=== PATIENT | female | born 1940 | race Caucasian/White ===

== ENCOUNTER 2017-09-11 12:47 | Outpatient (CLI) | payer MEDICARE ==
--- NOTE | 2017-09-17 11:54 | Mammography Report ---
EXAMINATION: Digital bilateral screening mammogram 09/11/2017. CLINICAL INDICATION: A 77-year-old for screening. COMPARISON: 06/2015, 03/2014, 11/2012, 11/2011, 11/2010, 11/2009. TECHNIQUE: Routine CC and MLO projections were obtained of the breasts. REPORT: The breasts demonstrate scattered fibroglandular densities bilaterally. Coarse and punctate, typically benign calcifications are present. No suspicious masses, clustered microcalcifications, or regions of architectural distortion are identified. IMPRESSION: Benign findings. RECOMMENDATIONS: Routine annual screening unless otherwise clinically indicated. BIRADS category 2 benign findings. STANDARD QUALIFYING STATEMENTS 1. This examination was reviewed with the aid of Computed Aided Detection (CAD). 2. A negative x-ray report should not delay biopsy if a dominant or clinically suspicious mass is present. More than 5% of cancers are not identified by x-ray. 3. Dense breasts may obscure an underlying neoplasm. TD: 09/12/2017 14:46 [facility]ITAL[facility]
== END 2017-09-11 12:48 | disposition home or self-care (01) ==
LOC: DI 12:47
PROVIDERS: ATTEND Internal Medicine
DX: Z12.31 Encounter for screening mammogram for malignant neoplasm of breast (principal)
CPT/HCPCS: 77067

== ENCOUNTER 2017-12-07 11:44 | Outpatient (CLI) | payer MEDICARE ==
[2017-12-07 13:51] LABS: EOSINOPHILS # (AUTO) 0.1 10^3/uL (0.0-0.7); EOSINOPHILS % (AUTO) 1.5 %; HGB - HEMOGLOBIN 13.8 g/dL (12.0-16.0); LYMPHOCYTES # (AUTO) 0.5 10^3/uL (1.5-3.5); LYMPHOCYTES % (AUTO) 12.5 %; MEAN CORPUSCULAR HEMOGLOBIN 29.6 pg (27.0-31.0); MEAN CORPUSCULAR VOLUME 87.2 fL (81.0-99.0); MONOCYTES # (AUTO) 0.6 10^3/uL (0.0-1.0); MONOCYTES % (AUTO) 15.4 %; NEUTROPHILS # (AUTO) 2.8 10^3/uL (1.5-6.6); NEUTROPHILS % (AUTO) 69.6 %; PLT - PLATELET COUNT 92 10^3/uL (130-450); RED BLOOD COUNT 4.65 10^6/uL (4.20-5.40); RED CELL DISTRIBUTION WIDTH 13.5 % (12.0-15.0)
[2017-12-07 14:01] LABS: ALBUMIN 3.5 g/dL (3.2-5.5); ALBUMIN/GLOBULIN RATIO 1.1 (1.0-2.2); BILIRUBIN,TOTAL 0.4 mg/dL (0.2-1.0); CALCIUM 9.1 mg/dL (8.5-10.3); CREATININE 0.8 mg/dL (0.4-1.0); TOTAL PROTEIN 6.6 g/dL (6.7-8.2)
[2017-12-07 14:10] LABS: PLATELET ESTIMATE, MANUAL DECREASED (<130,000) (NORMAL); PLATELET MORPHOLOGY 1+ GIANT PLATELETS (NORMAL); RBC MORPHOLOGY (MULTIPLE) NORMAL APPEARANCE (NORMAL)
== END 2017-12-07 11:45 | disposition home or self-care (01) ==
LOC: LAB.R 11:44
PROVIDERS: ATTEND Internal Medicine
DX: R10.11 Right upper quadrant pain (principal); R94.5 Abnormal results of liver function studies
CPT/HCPCS: 80053; 83690; 85025

== ENCOUNTER 2017-12-20 09:49 | Outpatient (CLI) | payer MEDICARE ==
--- NOTE | 2017-12-20 12:08 | Ultrasound Report ---
ABDOMINAL ULTRASOUND: 12/20/2017 CLINICAL INDICATION: Right upper quadrant pain. TECHNIQUE: Real-time scanning was performed with medicare sales representative static images obtained. FINDINGS: The liver measures 13 cm. Hepatic echogenicity is normal. No intrahepatic biliary dilatation or focal parenchymal lesion is seen. The common bile duct measures 3 mm. The gallbladder is normal. The right kidney demonstrates a 1.4 cm calculus in the right renal pelvis. No hydronephrosis is present. The right kidney measures 8.9 cm. The left kidney measures 10.3 cm, and appears unremarkable. The spleen measures 8.6 cm, and demonstrates normal echotexture. The pancreas is unremarkable. The abdominal aorta is normal in caliber. The inferior vena cava is unremarkable. No free fluid is present. IMPRESSION: NONOBSTRUCTING RIGHT RENAL CALCULUS. OTHERWISE, NORMAL ABDOMINAL ULTRASOUND. TD: 12/20/2017 12:08
== END 2017-12-20 09:50 | disposition home or self-care (01) ==
LOC: DI 09:49
PROVIDERS: ATTEND Internal Medicine
DX: N20.0 Calculus of kidney (principal)
CPT/HCPCS: 76700

== ENCOUNTER 2018-01-30 10:51 | Outpatient (CLI) | payer MEDICARE ==
[2018-01-30 13:26] LABS: ALBUMIN 3.4 g/dL (3.2-5.5); ALKALINE PHOSPHATASE 73 IU/L (42-121); ALT ALANINE AMINOTRANSFERASE 30 IU/L (10-60); AST ASPARTATE AMINOTRANSFERASE 37 IU/L (10-42); BILIRUBIN,TOTAL 0.3 mg/dL (0.2-1.0); TOTAL PROTEIN 6.6 g/dL (6.7-8.2)
[2018-01-30 13:35] LABS: BILIRUBIN,DIRECT < 0.1 mg/dL (0.1-0.5)
== END 2018-01-30 10:52 | disposition home or self-care (01) ==
LOC: LAB.R 10:51
PROVIDERS: ATTEND Internal Medicine
DX: R94.5 Abnormal results of liver function studies (principal)
CPT/HCPCS: 80076

== ENCOUNTER 2018-05-31 10:09 | Outpatient (CLI) | payer MEDICARE ==
[2018-05-31 13:01] LABS: BASOPHILS % (AUTO) 0.8 %; BILIRUBIN,URINE NEGATIVE (NEGATIVE); EOSINOPHILS # (AUTO) 0.1 10^3/uL (0.0-0.7); EOSINOPHILS % (AUTO) 1.5 %; GLUCOSE, URINE (UA) NEGATIVE (NEGATIVE); HGB - HEMOGLOBIN 13.2 g/dL (12.0-16.0); KETONES,URINE (UA) NEGATIVE (NEGATIVE); LEUKOCYTE ESTERASE, URINE NEGATIVE (NEGATIVE); LYMPHOCYTES # (AUTO) 0.5 10^3/uL (1.5-3.5); LYMPHOCYTES % (AUTO) 13.1 %; MEAN CORPUSCULAR HEMOGLOBIN 30.2 pg (27.0-31.0); MEAN CORPUSCULAR HGB CONC 34.5 g/dL (32.0-36.0); MEAN CORPUSCULAR VOLUME 87.7 fL (81.0-99.0); MEAN PLATELET VOLUME 10.3 fL (7.9-10.8); MONOCYTES # (AUTO) 0.6 10^3/uL (0.0-1.0); MONOCYTES % (AUTO) 16.8 %; NEUTROPHILS # (AUTO) 2.3 10^3/uL (1.5-6.6); NEUTROPHILS % (AUTO) 67.8 %; NITRITE,URINE NEGATIVE (NEGATIVE); OCCULT BLOOD,URINE NEGATIVE (NEGATIVE); PH,URINE 6.5 PH (5.0-7.5); PLT - PLATELET COUNT 108 10^3/uL (130-450); PROTEIN,URINE NEGATIVE (NEGATIVE); RED BLOOD COUNT 4.36 10^6/uL (4.20-5.40); RED CELL DISTRIBUTION WIDTH 12.9 % (12.0-15.0); UROBILINOGEN,URINE 0.2 (NORMAL) E.U./dL (NORMAL); WHITE BLOOD COUNT 3.4 x10^3/uL (4.8-10.8)
[2018-05-31 13:04] LABS: CLARITY,URINE CLEAR (CLEAR)
[2018-05-31 13:09] LABS: ALBUMIN 3.6 g/dL (3.2-5.5); ALBUMIN/GLOBULIN RATIO 1.3 (1.0-2.2); BILIRUBIN,TOTAL 1.3 mg/dL (0.2-1.0); CALCIUM 9.3 mg/dL (8.5-10.3); CREATININE 0.8 mg/dL (0.4-1.0); TOTAL PROTEIN 6.4 g/dL (6.7-8.2)
== END 2018-05-31 10:10 | disposition home or self-care (01) ==
LOC: LAB.R 10:09
PROVIDERS: ATTEND Internal Medicine
DX: F03.90 Unspecified dementia, unspecified severity, without behavioral disturbance, psychotic disturbance, mood disturbance, and anxiety (principal); Z79.899 Other long term (current) drug therapy
CPT/HCPCS: 80053; 81001; 81003; 85025; 87086

== ENCOUNTER 2018-07-23 10:23 | Outpatient (CLI) | payer MEDICARE | END 2018-07-23 10:24 | disposition critical access hospital (66) | LOC: EMS 10:23 | PROVIDERS: ATTEND Surgery | DX: M25.551 Pain in right hip (principal); M25.552 Pain in left hip; W18.30XA Fall on same level, unspecified, initial encounter | CPT/HCPCS: A0425; A0429 ==

== ENCOUNTER 2018-07-23 10:40 | Emergency (ER) | payer MEDICARE ==
[2018-07-23] MEDS ORDERED: ACETAMINOPHEN 325 MG TABLET PO STA (10:54)
--- NOTE | 2018-07-23 10:55 | ED Physician Documentation ---
PD HPI Fall - Stated complaint Stated Complaint: HIP PX - History obtained from History obtained from: Patient (limited from her due to marked dementia), EMS, Caregiver - History of Present Illness Mechanism of injury: Lost balance, Unknown Fall distance: Standing position Where injury occurred: Other (care facility) Timing - onset: How many days ago (4) Injury(ies) location: Right Lower Extremity (was limping on right hip/leg today. fell 2 days ago but seemed okay at that time.) Associated symptoms: No: LOC, Weakness Worsens with: Other (walking). No: Movement Review of Systems Unable to obtain: Dementia, Other (info from EMS report from SNF) Constitutional: denies: Fever Respiratory: denies: Dyspnea GI: denies: Vomiting, Diarrhea Skin: denies: Laceration (s) Neurologic: denies: Focal weakness PD PAST MEDICAL HISTORY - Past Medical History Cardiovascular: None Respiratory: None Neuro: Dementia Endocrine/Autoimmune: None GI: None SENIOR CONTROLS ANALYST: None : None HEENT: Chronic vision loss, Chronic hearing loss Psych: None Musculoskeletal: Rheumatoid arthritis Derm: None - Present Medications Home Medications: Ambulatory Orders Medication Instructions Recorded Confirmed Hydroxychloroquine [Plaquenil] 100 mg PO BID 07/26/14 06/23/18 Multivitamin [Multivitamins] 1 mg PO DAILY 07/26/14 06/23/18 hydroCHLOROthiazide 25 mg PO DAILY 07/26/14 06/23/18 [Hydrochlorothiazide] LORazepam [Ativan] 0.5 mg PO ONCE 07/23/18 07/23/18 LORazepam [Ativan] 0.5 mg PO Q6H PRN 07/23/18 07/23/18 Naproxen 375 mg PO BID #20 tablet 07/23/18 - Allergies Allergies/Adverse Reactions: Allergies Allergy/AdvReac Type Severity Reaction Status Date / Time No Known Drug Allergies Allergy Verified 07/23/18 10:54 - Social History Does the pt smoke?: No Smoking Status: Never smoker Does the pt drink ETOH?: No Does the pt have substance abuse?: No - Immunizations Immunizations are current?: Yes - POLST Patient has POLST: Yes PD ED PE NORMAL - Vitals Vital signs reviewed: Yes - General General: No acute distress, Well developed/nourished, Other (significant dementia with poor interaction. Awake and attentive, can respond to her name and answer simple questions with yes/no mostly. ) - HEENT HEENT: Atraumatic, PERRL, EOMI, Moist mucous membranes, Pharynx benign - Neck Neck: Supple, no meningeal sign, No bony TTP, No adenopathy - Cardiac Cardiac: RRR, No murmur - Respiratory Respiratory: Clear bilaterally, Other (no chestwall tenderness) - Abdomen Abdomen: Soft, Non tender - Back Back: No CVA TTP, Other (hard to assess, but some pain apparent in low back with ROM; no deformity.) - Derm Derm: Normal color, Warm and dry - Extremities Extremities: Normal ROM s pain (she can move her knees and hips well without pain. There is a bruising anterior left knee, without effusion. No gross laxity on ligament testing. Hip impaction and rotation does not cause pain. Possible some tenderness to hip compression laterally. Can assess for pelvic injury. ), No edema, No calf tenderness / cord - Neuro Neuro: No motor deficit, No sensory deficit. No: Alert and oriented X 3, Normal speech (c/w marked dementia.) Results - Vitals Vitals: Vital Signs - 24 hr 07/23/18 07/23/18 10:40 14:13 Temperature 36.5 C 36.6 C Heart Rate 78 80 Respiratory 18 16 Rate Blood Pressure 152/77 H 150/83 H O2 Saturation 99 99 Oxygen O2 Source Room air - Labs Labs: Laboratory Tests 07/23/18 07/23/18 11:06 11:06 WBC 3.5 L RBC 4.20 Hgb 12.5 Hct 36.3 L MCV 86.4 MCH 29.7 MCHC 34.4 RDW 12.9 Plt Count 151 MPV 9.3 Neut # (Auto) 2.1 Lymph # (Auto) 0.4 L Gilchrist # (Auto) 0.7 Eos # (Auto) 0.4 Baso # (Auto) 0.0 Absolute Nucleated RBC 0.00 Nucleated RBC % 0.0 Sodium 140 Potassium 3.5 Chloride 102 Carbon Dioxide 30 Anion Gap 8.0 BUN 29 H Creatinine 0.8 Estimated GFR (MDRD) 69 L Glucose 106 H Calcium 9.3 Magnesium 2.1 Total Bilirubin 0.8 AST 24 ALT 15 Alkaline Phosphatase 113 Total Protein 7.0 Albumin 3.5 Globulin 3.5 Albumin/Globulin Ratio 1.0 Lipase 38 - Rads (name of study) left knee Radiology: Prelim report reviewed (no fractures) pelvic and lumbar CT Radiology: Prelim report reviewed (negative for lumbar vertebral body fracture. Multiple levels of arthropathy, spondylolisthesis, and canal stenosis. Remote S4 fracture comminuted without soft tissue swelling nor edema to suggest acute injury (commentary on Pelvic CT and not lumbar). ) head CT Radiology: Prelim report reviewed (possilbe area of small frontal contusion vs. artifact calcification), Discussed with cornelius SIMS MEDICAL DECISION MAKING - ED course Complexity details: reviewed results (talked with about possible small contusion frontal brain but would not need more than watching. Her dementia limits cognitive subtle assessment per se. No fractures of back/hips/knee, which was and SNF main concern for sending her. Shared decision to let her back to SNF.), considered differential, d/w patient, d/w family (, who subsequently came to ED after imaging.), d/w data processing systems consultant (Provider at [facility], who reviewed the CT report and findings, and also felt that no particular treatment would be needed if there were frontal contusion after 2 days already. No need for Neurosurg nor transfer.) Departure - Departure Disposition: 01 Home, Self Care Clinical Impression: History of recent fall, Limping Dementia Qualifiers: Dementia type: unspecified type Dementia behavioral disturbance: without behavioral disturbance Qualified Code(s): F03.90 - Unspecified dementia without behavioral disturbance Knee contusion Qualifiers: Encounter type: initial encounter Laterality: left Qualified Code(s): S80.02XA - Contusion of left knee, initial encounter Condition: Stable Record reviewed to determine appropriate education?: Yes Follow-Up: Jami Hardy DO [Primary Care Provider] - Prescriptions: Naproxen 375 mg PO BID #20 tablet Comments: Naproxen 375 mg twice daily for the next 7-10 days to be taken with food. Continue other usual medications. Recheck if not improved over the next several days to week. There are no signs of fractures on your low back pelvis or knee. A scan of the head showed a possibility of a very small bruising in the front part of the brain (or it may be just an artifact according to the radiologist). This does not need any particular treatment and should improve as a small bruise would. Discharge Date/Time: 07/23/18 14:14
[2018-07-23 11:13] LABS: BASOPHILS % (AUTO) 1.4 %; EOSINOPHILS # (AUTO) 0.4 10^3/uL (0.0-0.7); EOSINOPHILS % (AUTO) 10.3 %; HGB - HEMOGLOBIN 12.5 g/dL (12.0-16.0); LYMPHOCYTES # (AUTO) 0.4 10^3/uL (1.5-3.5); MEAN CORPUSCULAR HEMOGLOBIN 29.7 pg (27.0-31.0); MEAN CORPUSCULAR HGB CONC 34.4 g/dL (32.0-36.0); MEAN CORPUSCULAR VOLUME 86.4 fL (81.0-99.0); MEAN PLATELET VOLUME 9.3 fL (7.9-10.8); MONOCYTES # (AUTO) 0.7 10^3/uL (0.0-1.0); MONOCYTES % (AUTO) 19.1 %; NEUTROPHILS # (AUTO) 2.1 10^3/uL (1.5-6.6); NEUTROPHILS % (AUTO) 59.2 %; PLT - PLATELET COUNT 151 10^3/uL (130-450); RED CELL DISTRIBUTION WIDTH 12.9 % (12.0-15.0); WHITE BLOOD COUNT 3.5 x10^3/uL (4.8-10.8)
[2018-07-23 11:30] LABS: ALBUMIN 3.5 g/dL (3.2-5.5); BILIRUBIN,TOTAL 0.8 mg/dL (0.2-1.0); CALCIUM 9.3 mg/dL (8.5-10.3); CREATININE 0.8 mg/dL (0.4-1.0); MAGNESIUM 2.1 mg/dL (1.7-2.8)
--- NOTE | 2018-07-23 11:50 | XRAY Report ---
Reason: fall with bruise left knee anterior Procedure Date: 07/23/2018 Accession Number: [id number] / [id number] Procedure: XR - Knee 3 View LT CPT Code: FULL RESULT: EXAM: LEFT KNEE RADIOGRAPHY EXAM DATE: 07/23/2018 11:26 AM. CLINICAL HISTORY: Fall with bruise left knee anterior. COMPARISON: XR TIBIA TECHNIQUE: 3 views. FINDINGS: Bones: Diffusely demineralized. No fractures or bone lesions. There is spurring at the quadriceps tendon insertion on the anterior superior patella. Joints: No subluxation or dislocation. No joint effusion. There is mild narrowing of the patellofemoral compartment. Soft Tissues: There is mild soft tissue swelling anterior to the lower pole of the patella. Moderate vascular calcifications are present. IMPRESSION: 1. No acute osseous abnormality. 2. Mild soft tissue swelling anterior to the inferior pole of the patella. 3. 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 RADIA
--- NOTE | 2018-07-23 12:09 | CT Report ---
Reason: fell, dementia and is confused Procedure Date: 07/23/2018 Accession Number: [id number] / [id number] Procedure: CT - Head W/O CPT Code: FULL RESULT: EXAM: CT HEAD EXAM DATE: 07/23/2018 11:28 AM. CLINICAL HISTORY: Fell, dementia and is confused. COMPARISON: Head CT 10/19/2006 (axial images only). TECHNIQUE: Multiaxial CT images were obtained from the foramen magnum to the vertex. Reformats: Sagittal and coronal. IV contrast: None. In accordance with CT protocol optimization, one or more of the following dose reduction techniques were utilized for this exam: automated exposure control, adjustment of mA and/or KV based on patient size, or use of iterative reconstructive technique. FINDINGS: Parenchyma: Small focus of high density along the anterior right frontal parafalcine cortex is suspicious for mild frontal cortical contusion/hemorrhage. Small focus of subarachnoid hemorrhage would be difficult to exclude. This potentially could be related to artifact, particularly based on the sagittal images. No evidence of mass, midline shift, or CT findings of acute infarction. Perez-white differentiation is distinct. Diffuse chronic microangiopathic white matter changes are evident and appear progressed compared with 2006. Extraaxial Spaces: Normal for age. No subdural or epidural collections identified. Ventricles: The ventricles and cortical sulci are enlarged, consistent with age-related tissue loss, progressed compared to 2006. Sinuses and orbits: Imaged paranasal sinuses, orbits, and mastoids show no significant abnormality. Bones: No evidence of fracture or calvarial defect. Other: None. IMPRESSION: 1. Findings suspicious for a small focus of right frontal cortical contusion/hemorrhage, as discussed above. 2. No other definite acute intracranial abnormality. 3. Generalized age-related cortical atrophic changes and substantial diffuse chronic microangiopathic white matter changes appear progressed compared with 2006. RADIA The above findings were discussed with Samir Friedman by Dr. Jakub Nunez at 12:07 hrs on 07/23/18.
--- NOTE | 2018-07-23 12:21 | CT Report ---
Reason: fell with limping hip/back Procedure Date: 07/23/2018 Accession Number: [id number] / [id number] Procedure: CT - Lumbar Spine W/O CPT Code: FULL RESULT: EXAM: CT LUMBAR SPINE WITHOUT CONTRAST EXAM DATE: 07/23/2018 11:44 AM. CLINICAL HISTORY: Fell with limping and hip/back pain. COMPARISONS: CT pelvis without contrast 07/23/2018.. TECHNIQUE: Thin-section axial images were acquired of the lumbar spine from T12 to S1 without contrast. Post-processing: Coronal and sagittal reformats. Other: None. In accordance with CT protocol optimization, one or more of the following dose reduction techniques were utilized for this exam: automated exposure control, adjustment of mA and/or KV based on patient size, or use of iterative reconstructive technique. FINDINGS: Alignment: 1. Retrolisthesis 4 mm L1 on L2. 2. Anterolisthesis 7 mm L4 and L5. 3. Anterolisthesis 1.2 cm L5 on S1. Bones: Five [id number]-hma-bmsshki lumbar vertebral bodies are present. No fractures or bone lesions. Displaced comminuted fractures noted of the S4 segment sacrum on the sagittal reconstructions. Disk Levels/Facets: T12-L1: Mild disk degeneration. Negative for spinal canal stenosis or foraminal stenosis. L1-L2: Severe disk degeneration. Moderate bilateral foraminal stenosis from retrolisthesis and disk degeneration. Widening of the apophyseal joints. Negative for central spinal canal stenosis. L2-L3: Diffuse disk bulge. Mild bilateral foraminal stenosis mild bilateral facet joint arthrosis. L3-L4: Mild disk degeneration. Mild left and moderate right foraminal stenosis from facet hypertrophy and loss of disk height. Negative for central spinal canal stenosis. L4-L5: Severe facet hypertrophic arthropathy. Mild right foraminal stenosis. Moderate left foraminal stenosis from loss of disk height, anterolisthesis and disk bulge. Diffuse disk bulge. L5-S1: Severe disk degeneration. Severe facet joint arthrosis. Severe right foraminal stenosis from disk degeneration and endplate spurring. Moderate to severe left foraminal stenosis from disk degeneration, facet hypertrophy and anterolisthesis. Musculature: Normal. No fatty atrophy. Other: The visualized retroperitoneum is unremarkable. Increased septal markings with honeycombing right lung base. Elevation of the right hemidiaphragm. Left lung base is without consolidation. Negative for pleural fluid. Diffuse cardiac enlargement. Cardiac valve and coronary artery calcification. Several dependent right kidney stones with the cluster measuring 1.7 cm in transverse dimension. Narrowing and arthrosis interspinous spaces from L2-L5. IMPRESSION: 1. Negative for lower thoracic or lumbar vertebral body fracture. 2. S4 sacral segment displaced comminuted fracture. 3. Severe bilateral facet joint arthrosis and there is 7 mm anterolisthesis L4 on L5. 4. Severe bilateral L5-S1 facet joint hypertrophic arthropathy, severe L5-S1 disk degeneration and anterolisthesis 1.2 cm L5 on S1. 5. Severe right and moderate to severe left L5-S1 foraminal stenosis. 6. Moderate right L3-L4 moderate left L4-L5 foraminal stenosis. 7. Multiple central right kidney layering cyst or pelvis stones. 8. Chronic interstitial lung disease right lung base.. RADIA
--- NOTE | 2018-07-23 12:31 | CT Report ---
Reason: fell with limping right hip Procedure Date: 07/23/2018 Accession Number: [id number] / [id number] Procedure: CT - Pelvis W/O CPT Code: FULL RESULT: EXAM: CT BONY PELVIS WITHOUT CONTRAST EXAM DATE: 07/23/2018 11:44 AM. CLINICAL HISTORY: Fell with limping right hip. COMPARISON: CT lumbar spine 07/23/2018 ABDOMEN/PELVIS W/ 02/14/2016 10:42 AM. TECHNIQUE: Thin-section axial images were acquired of the pelvis without contrast. Post-processing: Coronal and sagittal reformats. Other: None. In accordance with CT protocol optimization, one or more of the following dose reduction techniques were utilized for this exam: automated exposure control, adjustment of mA and/or KV based on patient size, or use of iterative reconstructive technique. FINDINGS: Bones: Comminuted fracture is noted of the superior S4 segment with the 4 mm anterior displaced cortical fracture and mild angulation which is new as compared to the CT 02/14/2016. Sacroiliac Joints: No widening, erosions, or sclerosis. Symphysis Pubis: Unremarkable. Right Hip: Narrowing of the right hip. Moderate right hip osteoarthritis. Left Hip: The joint space is preserved. No calcified loose bodies. Negative for left hip osteoarthritis. Musculature: Normal. No fatty atrophy. Pelvic Cavity: Negative for pelvic free fluid. Severe distention of the urinary bladder. Probable rectal fecal impaction. Pelvic floor relaxation. Other: No lymphadenopathy. No free air or free fluid. The other visualized soft tissues are unremarkable. IMPRESSION: 1. Negative for a hip fracture. 2. Transverse remote comminuted fracture superior S4 segment and sacrum with 4 mm ventral cortical fracture fragment displacement and angulation. Negative for associated presacral edema on the sagittal reconstructions to suggest acute injury. RADIA
[2018-07-23 14:14] VITALS: BP 150/83
== END 2018-07-23 14:14 | disposition home or self-care (01) ==
LOC: EDUNIT# → ED 10:40
DX: S80.02XA Contusion of left knee, initial encounter (principal); M25.551 Pain in right hip; W18.30XA Fall on same level, unspecified, initial encounter; Y92.129 Unspecified place in nursing home as the place of occurrence of the external cause; F03.90 Unspecified dementia, unspecified severity, without behavioral disturbance, psychotic disturbance, mood disturbance, and anxiety; M51.37 Other intervertebral disc degeneration, lumbosacral region; M48.07 Spinal stenosis, lumbosacral region; M06.9 Rheumatoid arthritis, unspecified
CPT/HCPCS: 36415; 70450; 72131; 72192; 73562; 80053; 83690; 83735; 85025; 99283; A9270

== ENCOUNTER 2018-07-25 15:26 | Outpatient (CLI) | payer MEDICARE | END 2018-07-25 15:27 | disposition critical access hospital (66) | LOC: EMS 15:26 | PROVIDERS: ATTEND Surgery | DX: M25.551 Pain in right hip (principal); W19.XXXA Unspecified fall, initial encounter | CPT/HCPCS: A0425; A0429 ==

== ENCOUNTER 2018-07-25 15:29 | Observation (INO) | payer MEDICARE ==
--- NOTE | 2018-07-25 15:31 | ED Physician Documentation ---
PD HPI LOWER EXT INJURY - Stated complaint Stated Complaint: HIP PX - History obtained from History obtained from: Patient - History of Present Illness PD HPI LOW EXT INJURY LOCATION: Right, Hip Type of injury: Fall (she has had multiple falls recently, with balance problems and some knee and back pains, with fall just couple days ago and seen in ER with normal imaging. She has dementia and likes to get up and walk. Fell today and has new pain right hip.) Where injury occurred: Other (SNF/dementia care unit) Timing - onset: Today Timing - details: Abrupt onset Worsened by: Moving, Palpating Associated symptoms: No: Weakness, Numbness Review of Systems Unable to obtain: Dementia Constitutional: denies: Fever Nose: denies: Rhinorrhea / runny nose, Congestion Respiratory: denies: Dyspnea, Cough GI: denies: Vomiting, Diarrhea Skin: denies: Abrasion (s), Laceration (s) Neurologic: denies: Focal weakness PD PAST MEDICAL HISTORY - Past Medical History Cardiovascular: None Respiratory: None Neuro: Dementia Endocrine/Autoimmune: None GI: None TELECOMMUNICATIONS REPAIRER: None : None HEENT: Chronic vision loss, Chronic hearing loss Psych: None Musculoskeletal: Rheumatoid arthritis Derm: None - Present Medications Home Medications: Ambulatory Orders Medication Instructions Recorded Confirmed RX: Acetaminophen 650 mg PO Q6H PRN 07/25/18 07/25/18 RX: Hydroxychloroquine Sulfate 200 mg PO BID 07/25/18 07/25/18 RX: LORazepam [Lorazepam] 0.5 mg PO 1200 07/25/18 07/25/18 RX: LORazepam [Lorazepam] 0.5 mg PO Q6H PRN 07/25/18 07/25/18 RX: Loperamide HCl [Loperamide] 2 - 4 mg PO PRN PRN MDD 16 MG 07/25/18 07/25/18 RX: Multivitamin [Theragran] 1 tab PO DAILY 07/25/18 07/25/18 RX: QUEtiapine [SEROquel] 25 mg PO 0600,1200 07/25/18 07/25/18 RX: Sennosides [Senna] 8.6 - 17.2 mg PO DAILY PRN 07/25/18 07/25/18 RX: Simvastatin 10 mg PO QPM 07/25/18 07/25/18 Cholecalciferol (Vitamin D3) 1,000 unit PO DAILYWM #30 capsule 07/26/18 [Vitamin D3] RX: Alendronate [Fosamax] 70 mg PO Q7D tablet 07/26/18 RX: Calcium Carbonate [Tums 500 mg PO BID tablet 07/26/18 (Calcium Carbonate 500mg)] RX: Cyclobenzaprine [Flexeril] 5 mg PO TID PRN tablet 07/26/18 RX: Ferrous Sulfate 325 mg PO TID #90 tablet 07/26/18 RX: HYDROcod/ACETAM 5/325 [[place] 1 tab PO Q4HR PRN tablet 07/26/18 5325] RX: Latanoprost 0.005% Ophth Drops 1 drops EACHEYE QPM bottle 07/26/18 [Xalatan Ophth Drops] RX: Memantine [Namenda] 5 mg PO BID tablet 07/26/18 RX: Polyethylene Glycol 3350 17 gm PO DAILY packet 07/26/18 [Miralax] - Allergies Allergies/Adverse Reactions: Allergies Allergy/AdvReac Type Severity Reaction Status Date / Time No Known Drug Allergies Allergy Verified 07/23/18 10:54 - Social History Does the pt smoke?: No Smoking Status: Never smoker Does the pt drink ETOH?: No Does the pt have substance abuse?: No - Immunizations Immunizations are current?: Yes - POLST Patient has POLST: Yes PD ED PE NORMAL - Vitals Vital signs reviewed: Yes - General General: Well developed/nourished. No: Alert and oriented X 3 (answers to name and is alert but significant dementia. ) - HEENT HEENT: Atraumatic, Moist mucous membranes, Pharynx benign - Neck Neck: Supple, no meningeal sign, No bony TTP, No adenopathy - Cardiac Cardiac: RRR, No murmur - Respiratory Respiratory: Clear bilaterally - Abdomen Abdomen: Soft, Non tender - Derm Derm: Normal color, Warm and dry - Extremities Extremities: Other (bruised noted on knees and hips. partial thickness skin wound without active infection left lateral inguinal area. No proximal bruises. Right hip painful for impactional testing, not as much for rotational. ) - Neuro Neuro: No motor deficit, No sensory deficit Results - Vitals Vitals: Oxygen O2 Source Room air - Rads (name of study) pelvis Radiology: Prelim report reviewed (rami fractures on right, minimally displaced. Hip appears okay. ), EMP read contemporaneously PD MEDICAL DECISION MAKING - ED course Complexity details: considered differential, d/w patient, d/w family (), d/w organization development consultant (senior stock plan administrator from he SNF is in ER and says they can handle her at facility if establish appropriate pain control and get PT assessment for treatment here in hospital first. ) Departure - Departure Disposition: ED Place in Observation Clinical Impression: Intractable pain Fall from slip, trip, or stumble Qualifiers: Encounter type: subsequent encounter Qualified Code(s): W01.0XXD - Fall on same level from slipping, tripping and stumbling without subsequent striking against object, subsequent encounter Closed fracture of single pubic ramus of pelvis Qualifiers: Encounter type: initial encounter Laterality: right Qualified Code(s): S32.591A - Other specified fracture of right pubis, initial encounter for closed fracture Dementia Qualifiers: Dementia type: unspecified type Dementia behavioral disturbance: without behavioral disturbance Qualified Code(s): F03.90 - Unspecified dementia without behavioral disturbance Condition: Stable Record reviewed to determine appropriate education?: Yes Discharge Date/Time: 07/25/18 18:56
[2018-07-25] MEDS ORDERED: ACETAMINOPHEN 325 MG TABLET PO STA (15:50)
[2018-07-25] MEDS ORDERED: KETOROLAC 15 MG/ML VIAL IVP STA (17:05)
[2018-07-25] MEDS ORDERED: MORPHINE 10 MG/ML VIAL IVP STA (17:05)
--- NOTE | 2018-07-25 17:06 | XRAY Report ---
Reason: fall again today, with right hip pain Procedure Date: 07/25/2018 Accession Number: [id number] / [id number] Procedure: XR - Hip w/Pelvis 2-3V RT CPT Code: FULL RESULT: EXAM: RIGHT HIP AND PELVIS RADIOGRAPHY EXAM DATE: 07/25/2018 04:43 PM. HISTORY: Fall again today, with right hip pain. COMPARISONS: XR HIPS BILAT 07/26/2009 4:02 PM PELVIS W/O 07/23/2018 11:38 AM. TECHNIQUE: 1 view of the pelvis and 1 view of the hip. FINDINGS: Bones: There are new fractures with displacement of the right superior and inferior pubic rami. There is diffuse demineralization. Possible right sacral fracture, limited by demineralization. No right femur fracture. Joints: No subluxation or dislocation. Soft Tissues: No dilated bowel loops. There are vascular calcifications. IMPRESSION: 1. Acute new fractures with displacement of the right superior and inferior pubic ramus. Possible right sacral fracture, visualization limited by demineralization. RADIA
[2018-07-25] MEDS ORDERED: ONDANSETRON 4 MG/2 ML VIAL IVP PRN (17:54)
[2018-07-25] MEDS ORDERED: ONDANSETRON ODT 4 MG TABLET TL PRN (17:54)
[2018-07-25] MEDS ORDERED: SODIUM CHLORIDE FLUSH 0.9% 10 ML SYRINGE IVP PRN (17:54)
[2018-07-25 18:08] LABS: BASOPHILS % (AUTO) 0.6 %; EOSINOPHILS # (AUTO) 0.1 10^3/uL (0.0-0.7); EOSINOPHILS % (AUTO) 1.9 %; LYMPHOCYTES # (AUTO) 0.3 10^3/uL (1.5-3.5); LYMPHOCYTES % (AUTO) 4.9 %; MEAN CORPUSCULAR HEMOGLOBIN 28.8 pg (27.0-31.0); MEAN CORPUSCULAR HGB CONC 33.4 g/dL (32.0-36.0); MEAN CORPUSCULAR VOLUME 86.2 fL (81.0-99.0); MEAN PLATELET VOLUME 9.3 fL (7.9-10.8); NEUTROPHILS # (AUTO) 4.2 10^3/uL (1.5-6.6); NEUTROPHILS % (AUTO) 75.6 %; PLT - PLATELET COUNT 165 10^3/uL (130-450); RED BLOOD COUNT 3.83 10^6/uL (4.20-5.40); RED CELL DISTRIBUTION WIDTH 13.2 % (12.0-15.0); WHITE BLOOD COUNT 5.6 x10^3/uL (4.8-10.8)
[2018-07-25] MEDS ORDERED: CYCLOBENZAPRINE 10 MG TABLET PO PRN (18:15)
[2018-07-25] MEDS ORDERED: hydrALAZINE INJ 20 MG/ML VIAL IVP PRN (18:16)
[2018-07-25 18:20] LABS: ALBUMIN 3.2 g/dL (3.2-5.5); BILIRUBIN,TOTAL 1.3 mg/dL (0.2-1.0); CALCIUM 8.9 mg/dL (8.5-10.3); TOTAL PROTEIN 6.5 g/dL (6.7-8.2)
--- NOTE | 2018-07-25 18:27 | HISTORY & PHYSICAL EXAMINATION ---
Chief Complaint - Chief Complaint Chief Complaint: s/p fall with hip pain History of Present Illness - Admitted From Admitted From:: From [facility] unit - History Obtained From Records Reviewed: yes History obtained from: Son Exam Limitations: Patient's dementia - History of Present Illness HPI Comment/Other: This is a 77 y/o pleasantly demented female with hx multiple falls, alzheimer's dementia, HTN, HLP, osteopenia, OA of hip, L-spine stenosis with dejenerative disk diseae p/w ER having been seen for a fall 2 days prior from [facility] unit with recurrent fall and associated hip pain with gait disturbabnce. Patien's son was at bedside to convey most of information as patient has moderate dementia and is a poor historian. Patient had imaging studies 2 days prior which showed L-knee xray neg for acute fx's, however L- spine and pelvis CT showed an S-4 segment comminuted and displaced sacral fx with angulation (age undetermined). L-spine at the time revealed degenerative disc disease at L-5 to S-1 with moderate stenosis to right L3/L4 and left L4/L5, anterolisthiesis L4/L5 and L5 on S1, along with facet arthropathy BL L5/S1, ostepenia, moderate right hip OA. Today patient had another fall for which Xrays revealed R-sacral fx present likely from prior fall, and NEW pelvic fractures to right superior and inferior pubic rami with displacement. Labs from 07/23 were essential unremarkable, CBC today shows a downtrending in Hgb to 11.0 from a 12.5. Patient or son denies melena, fevers, joint pain, dysuria, chest pain, nausea, emesis, or rashes. Patient was able to extend her left leg and did not grimace in pain on manipulation her pelvis bilaterally. History - Past Medical History Cardiovascular: reports: None, Murmur, Other (systolic 2/6 rad to axilla ) Respiratory: reports: None, Other (ILD) Neuro: reports: Alzhiemer's, Dementia Endocrine/Autoimmune: reports: None GI: reports: None, Other (tubular adenoma on colonoscopy 09/20/15) RESIDENT PHYSICIAN IN RADIOLOGY: reports: None : reports: None HEENT: reports: Chronic vision loss, Chronic hearing loss Psych: reports: None, Other (dementia ) Musculoskeletal: reports: Rheumatoid arthritis Derm: reports: None MRSA Hx?: No Other Past Medical History: hemorrhoids in 2015, hyperlipidemia, HTN - Past Surgical History /RESIDENT PHYSICIAN IN RADIOLOGY: reports: Hysterectomy HEENT: reports: Cataracts, Other (s/p cataract extraction ) Derm: reports: Other (sebacyst cystectomy 2013) - Family & Social History Family History Comment/Other: Due to patient's demented status limited. Living arrangement: Other (Memory care unit) Living Situation: Other ([facility]) - Substance History Use: Uses substance without health or social issues: NONE Use Issues: Other (Alzheimer's dementia ) Abuse: Recurrent use of substance despite neg consequences: NONE Dependence: Experiences withdrawal or developed tolerances: NONE - POLST Patient has POLST: Yes POLST Status: DNR Meds/Allgy - Home Medications Home Medications: Ambulatory Orders Medication Instructions Recorded Confirmed RX: hydroCHLOROthiazide 25 mg PO DAILY 07/26/14 07/25/18 [Hydrochlorothiazide] LORazepam [Lorazepam] 0.5 mg PO 1200 07/25/18 07/25/18 LORazepam [Lorazepam] 0.5 mg PO Q6H PRN 07/25/18 07/25/18 Loperamide HCl [Loperamide] 2 - 4 mg PO PRN PRN MDD 16 MG 07/25/18 07/25/18 Multivitamin [Theragran] 1 tab PO DAILY 07/25/18 07/25/18 RX: Acetaminophen 650 mg PO Q6H PRN 07/25/18 07/25/18 RX: Hydroxychloroquine Sulfate 200 mg PO BID 07/25/18 07/25/18 RX: QUEtiapine [SEROquel] 25 mg PO 0600,1200 07/25/18 07/25/18 Sennosides [Senna] 8.6 - 17.2 mg PO DAILY PRN 07/25/18 07/25/18 Simvastatin 10 mg PO QPM 07/25/18 07/25/18 - Allergies Allergies/Adverse Reactions: Allergies Allergy/AdvReac Type Severity Reaction Status Date / Time No Known Drug Allergies Allergy Verified 07/23/18 10:54 Review of Systems - Constitutional Constitutional: reports: Weakness. denies: Fever, Chills - Eyes Eyes: denies: Pain - Ears, Nose & Throat Ears, Nose & Throat: denies: Ear pain, Tinnitus, Vertigo - Cardiovascular Cariovascular: denies: Palpitations, Chest pain, Lightheadedness, Syncope - Respiratory Respiratory: denies: Cough, Wheezing - Gastrointestinal Gastrointestinal: denies: Abdominal pain, Abdominal distention, Constipation, Diarrhea, Black stools, Bloody stools, Nausea, Vomiting, Reflux/heartburn - Genitourinary Genitourinary: denies: Dysuria, Frequency, Urgency, Hematuria - Musculoskeletal Musculoskeletal: reports: Muscle weakness. denies: Back pain, Muscle aches - Integumentary Integumentary: denies: Rash, Pruritis, Lesions - Neurological Neurological: reports: General weakness, Abnormal gait - Psychiatric Psychiatric: denies: Anxiety, Suicidal, Delusions, Hallucinations - Endocrine Endocrine: denies: Polyuria, Polydypsia, Polyphagia - Hematologic/Lymphatic Hematologic/Lymphatic: denies: Anemia, Recurrent infections - All Other Systems All Other Systems: reports: Reviewed and negative Prior Level of Functionality: Patient was NOT ambulating at [facility] Exam - Vital Signs Reviewed Vital Signs: Yes Vital Signs: Vital Signs x48h Temp Pulse Resp BP Pulse Ox 07/25/18 15:28 37.0 C 80 15 136/64 H 98 - Physical Exam General Appearance: positive: No acute distress, Anxious (Pleasantly demented), Other Eyes Bilateral: positive: Normal inspection ENT: positive: ENT inspection nml Neck: positive: Nml inspection, Thyroid nml, No JVD, Trachea midline. negative: Thyromegaly, Carotid bruit Respiratory: positive: Chest non-tender, No respiratory distress, Breath sounds nml. negative: Wheezes, Rales, Rhonchi Cardiovascular: positive: Regular rate & rhythm, No gallop, Systolic murmur (2/6 with rad to axilla). negative: Gallop/S3 Peripheral Pulses: positive: 2+ Abdomen: positive: Non-tender, No organomegaly, Nml bowel sounds, No distention Skin: positive: Color nml, No rash, Warm. negative: Skin rash, Decubitus Extremities: positive: Non-tender, No pedal edema, Other (Limited ROM to right hip abduction/adduction) Neurologic/Psychiatric: positive: Disoriented to person, Disoriented to time, Weakness, Other (demented with poor history) Conclusion/Plan - Problem List (1) Closed fracture of single pubic ramus of pelvis Conclusion/Plan: Likely due to a mechanical fall as patient had slipped at [place] trying to ambulate although unclear of ambulation status prior to fall prior to ED visit. Imaging studies reviewed and would treat conservatively with pain meds, PT/OT. Obtain a disposition in terms of rehab potential as [facility] has a daniel lift and would continue mobility or rehab plan if PT/OT recommends one. Qualifiers: Encounter type: initial encounter Laterality: right Qualified Code(s): S32.591A - Other specified fracture of right pubis, initial encounter for closed fracture (2) Sacral fracture Conclusion/Plan: Undetermined age but likely happened approximately 4-5 days ago when patient had initially fallen at [facility]. Imaging studies reviewed and would treat conservatively with pain meds, PT/OT. Obtain a disposition in terms of rehab potential as [facility] has a daniel lift and would continue mobility or rehab plan if PT/OT recommends one. Qualifiers: Encounter type: initial encounter Fracture type: closed Fracture morphology: unspecified fracture morphology Qualified Code(s): S32.10XA - Unspecified fracture of sacrum, initial encounter for closed fracture (3) Spinal stenosis, lumbar Conclusion/Plan: Likely contributing to poor posturing and gait issues with mobility to stabilize core. Would have PT/OT to asses. Qualifiers: Neurogenic claudication status: unspecified Qualified Code(s): M48.061 - Spinal stenosis, lumbar region without neurogenic claudication (4) Gait abnormality Conclusion/Plan: Rehab potential per PT/OT. (5) Osteoarthritis of right hip Conclusion/Plan: Would obtain Vit D level to see if patient has def. levels. Qualifiers: Osteoarthritis type: other secondary Qualified Code(s): M16.7 - Other unilateral secondary osteoarthritis of hip (6) Alzheimer's dementia Conclusion/Plan: Would start namenda or aricept, improve cognition and minimize behavioral d/o, avoid sedatives and narcotics only to be given as prn for pain. Qualifiers: Alzheimer's disease onset: unspecified onset Dementia behavioral disturbance: without behavioral disturbance Qualified Code(s): G30.9 - Alzheimer's disease, unspecified; F02.80 - Dementia in other diseases classified elsewhere without behavioral disturbance (7) Fall from slip, trip, or stumble Conclusion/Plan: Hx of multiple falls with high risk of falls in future. Would monitor and assess mobility status, strength and balance. Qualifiers: Encounter type: subsequent encounter Qualified Code(s): W01.0XXD - Fall on same level from slipping, tripping and stumbling without subsequent striking against object, subsequent encounter (8) Intractable pain Conclusion/Plan: Place on IV toradol with flexeril/norco combo prn. Right pelvic pain. (10) Anemia Conclusion/Plan: Normocytic with hx internal hemorrhoids per hx. Would monitor trends. No mention of melena or BRBPR. Qualifiers: Anemia type: unspecified type Qualified Code(s): D64.9 - Anemia, unspecified (11) Osteopenia Conclusion/Plan: Obtain vitamin D level. Treat if deficient or insufficient Qualifiers: Osteopenia location: hip Laterality: bilateral Qualified Code(s): M85.851 - Other specified disorders of bone density and structure, right thigh; M85.852 - Other specified disorders of bone density and structure, left thigh - Lab Results Fish Bones: 07/25/18 17:55 07/25/18 17:55 - Diagnostic Imaging Results Diagnostic Imaging Results: positive: Final report reviewed (Pelvic xray, CT pelvis and L-xray knee) Core Measures - Anticipated LOS I expect patient to be DC'd or transferred within 96 hours.: Yes - Issues Hospital Issues and Management Plan: Patient with alzheimer's dementia admitted for right pelvic pain and fractures to manage with pain control and assess rehab potential with PT/OT. - DVT/VTE - Prophylaxis VTE/DVT Device ordered at admit?: No Not Ordered - Medical Reason: Not indicated (Will place on Heparin PPx) VTE/DVT Prophylaxis med ordered at admit?: Yes - Stroke - Rehab Assessment Rehab services assessment to be ordered?: Yes - AMI - Statin at Admit Aspirin Prescribed on Admit: Yes
[2018-07-25 18:35] LABS: PHOSPHORUS 3.4 mg/dL (2.5-4.6)
[2018-07-25] MEDS ORDERED: HALOPERIDOL 5 MG/ML VIAL ONE (19:20)
[2018-07-25] MEDS: HALOPERIDOL 5 MG/ML VIAL IM PRN (19:37)
[2018-07-25] MEDS: LACTATED RINGERS 1,000 ML IV SCH (19:48)
[2018-07-25] MEDS ORDERED: HEPARIN 5,000 UNIT/ML VIAL SUBQ SCH (20:00)
[2018-07-25] MEDS ORDERED: LATANOPROST 0.005% OPHTH DROPS EACHEYE SCH (21:00)
[2018-07-25] MEDS ORDERED: FAMOTIDINE 20 MG TABLET PO SCH (21:00)
[2018-07-25] MEDS: MEMANTINE 5 MG TABLET PO SCH (21:22)
[2018-07-25] MEDS: KETOROLAC 30 MG/ML VIAL IVP PRN (23:33)
[2018-07-26] MEDS: HALOPERIDOL 5 MG/ML VIAL IM PRN ×2 (00:43→04:25)
[2018-07-26] MEDS: SODIUM CHLORIDE FLUSH 0.9% 10 ML SYRINGE IVP SCH ×2 (00:51→08:05)
[2018-07-26] MEDS: LACTATED RINGERS 1,000 ML IV SCH (05:17)
[2018-07-26] MEDS ORDERED: LORazepam 0.5 MG TABLET PO PRN (06:15)
[2018-07-26] MEDS ORDERED: LOPERAMIDE 2 MG CAPSULE PO PRN (06:15)
[2018-07-26] MEDS ORDERED: SENNA 8.6 MG TABLET PO PRN (06:15)
--- NOTE | 2018-07-26 06:26 | PROVIDER PROGRESS NOTE ---
Subjective - Prog Note Date Prog Note Date: 07/26/18 Prog Note Time: 06:30 - Subjective Pt reports feeling: Improved Subjective: Patient with acute agitation and behavioral disturbance. Patient talking to herself without clear cognition. Yesterday patients labs indicate that patient was in acute dehydration and acute renal insufficiency. Cr 1.0 (baseline 0.6-0.8), Tbili 1.3, lipase wnl. Patient had pulled out her IV, required 2 pt. soft restraints and HALDOL due to her Dementia with behavioral disturbance that would pose a risk to her health if pharmacological and non-pharm restraints would not be uses. LR running @100ml/hr Current Medications - Current Medications Current Medications: Active Medications Hydrocodone Bitart/Acetaminophen ([place] 5/325) 1 tab PO Q4HR PRN PRN Reason: Pain 5 to 7 Cyclobenzaprine HCl (Flexeril) 5 mg PO TID PRN PRN Reason: muscle pain Enoxaparin Sodium (Lovenox) 40 mg SUBQ DAILY [facility] Famotidine (Pepcid) 20 mg PO DAILY [facility] Haloperidol (Haldol Inj) 5 mg IM Q4HR PRN PRN Reason: Agitation and pscyhosis Last Admin: 07/26/18 04:25 Dose: 5 mg Hydralazine HCl (Apresoline Inj) 10 mg IVP Q4HR PRN PRN Reason: SBP>160 Hydrochlorothiazide (Hydrodiuril) 25 mg PO DAILY [facility] Hydroxychloroquine Sulfate (Plaquenil) 200 mg PO BID [facility] Lactated Ringer's (Lr) 1,000 mls @ 100 mls/hr IV .Q10H [facility] Last Admin: 07/26/18 05:17 Dose: 100 mls/hr Ketorolac Tromethamine (Toradol Inj (30mg)) 30 mg IVP Q6HR PRN PRN Reason: PAIN Stop: 07/30/18 18:59 Last Admin: 07/25/18 23:33 Dose: 30 mg Latanoprost (Xalatan Ophth Drops) 1 drops EACHEYE QPM [facility] Last Admin: 07/25/18 21:22 Dose: Not Given Lorazepam (Ativan) 0.5 mg PO 1200 [facility]TAN Lorazepam (Ativan) 0.5 mg PO Q6H PRN PRN Reason: AGGITATION Memantine (Namenda) 5 mg PO BID [facility] Last Admin: 07/25/18 21:22 Dose: Not Given Multivitamins (Theragran) 1 tab PO DAILY [facility] Non-Formulary Medication (Loperamide Hcl [Loperamide]) 2 mg PO PRN PRN PRN Reason: Diarrhea Non-Formulary Medication (Simvastatin [Simvastatin]) 10 mg PO QPM [facility] Ondansetron HCl (Zofran Inj) 4 mg IVP Q6HR PRN PRN Reason: Nausea / Vomiting Ondansetron HCl (Zofran Odt) 4 mg TL Q6HR PRN PRN Reason: Nausea / Vomiting Polyethylene Glycol (Miralax) 17 gm PO DAILY [facility] Quetiapine Fumarate (Seroquel) 25 mg PO 0600,1200 [facility] Senna (Senokot) 17.2 mg PO DAILY PRN PRN Reason: Constipation Sodium Chloride (Normal Saline Flush 0.9%) 10 ml IVP PRN PRN PRN Reason: NEEDED PER PROVIDER ORDERS Last Admin: 07/25/18 19:48 Dose: 10 ml Sodium Chloride (Normal Saline Flush 0.9%) 10 ml IVP 0100,0900,1700 [facility] Last Admin: 07/26/18 00:51 Dose: Not Given hydroCHLOROthiazide [Hydrochlorothiazide] 25 mg PO DAILY 07/26/14 Acetaminophen 650 mg PO Q6H PRN 07/25/18 Hydroxychloroquine Sulfate 200 mg PO BID 07/25/18 LORazepam [Lorazepam] 0.5 mg PO 1200 07/25/18 LORazepam [Lorazepam] 0.5 mg PO Q6H PRN 07/25/18 Loperamide HCl [Loperamide] 2 - 4 mg PO PRN PRN MDD 16 MG 07/25/18 Multivitamin [Theragran] 1 tab PO DAILY 07/25/18 QUEtiapine [SEROquel] 25 mg PO 0600,1200 07/25/18 Sennosides [Senna] 8.6 - 17.2 mg PO DAILY PRN 07/25/18 Simvastatin 10 mg PO QPM 07/25/18 Objective - Vital Signs/Intake & Output Reviewed Vital Signs: Yes Vital Signs: Vital Signs x48h Temp Pulse Resp BP Pulse Ox 07/26/18 04:15 36.5 C 99 18 155/64 H 98 07/26/18 00:00 36.9 C 88 18 154/63 H 95 Intake & Output: Intake & Output 07/23/18 07/24/18 07/25/18 07/26/18 23:59 23:59 23:59 23:59 Intake Total 948.333 Balance 948.333 - Objective General Appearance: positive: No acute distress, Other (cachexia) Eyes Bilateral: positive: Normal inspection Neck: positive: Nml inspection, Thyroid nml, No JVD, Trachea midline Respiratory: positive: Chest non-tender, No respiratory distress, Breath sounds nml Cardiovascular: positive: Regular rate & rhythm, No gallop, Systolic murmur. negative: Irregularly irregular, Gallop/S3 Peripheral Pulses: 2+ Dorsalis pedis (R), 2+ Dorsalis pedis (L) Abdomen: positive: Non-tender, No organomegaly, Nml bowel sounds, No distention. negative: Hepatomegaly, Splenomegaly Skin: positive: Color nml, No rash, Warm. negative: Skin rash Extremities: positive: Non-tender, Other (proximal muscle wasting noted.). negative: Joint swelling Neurologic/Psychiatric: positive: Disoriented to place, Disoriented to time, Other (Demented and talking to self, tangetial) - Lab Results Fish Bones: 07/26/18 06:32 07/25/18 17:55 Other Labs: Lab Results x24hrs 07/25/18 07/25/18 Range/Units 17:55 17:55 WBC 5.6 (4.8-10.8) x10^3/uL RBC 3.83 L (4.20-5.40) 10^6/uL Hgb 11.0 L (12.0-16.0) g/dL Hct 33.0 L (37.0-47.0) % MCV 86.2 (81.0-99.0) fL MCH 28.8 (27.0-31.0) pg MCHC 33.4 (32.0-36.0) g/dL RDW 13.2 (12.0-15.0) % Plt Count 165 (130-450) 10^3/uL MPV 9.3 (7.9-10.8) fL Neut # (Auto) 4.2 (1.5-6.6) 10^3/uL Lymph # (Auto) 0.3 L (1.5-3.5) 10^3/uL [place] # (Auto) 1.0 (0.0-1.0) 10^3/uL Eos # (Auto) 0.1 (0.0-0.7) 10^3/uL Baso # (Auto) 0.0 (0.0-0.1) 10^3/uL Absolute Nucleated RBC 0.00 x10^3/uL Nucleated RBC % 0.1 /100WBC Sodium 140 (135-145) mmol/L Potassium 3.4 L (3.5-5.0) mmol/L Chloride 100 L (101-111) mmol/L Carbon Dioxide 32 (21-32) mmol/L Anion Gap 8.0 (6-13) BUN 37 H (6-20) mg/dL Creatinine 1.0 (0.4-1.0) mg/dL Estimated GFR (MDRD) 54 L (>89) Glucose 93 (70-100) mg/dL Calcium 8.9 (8.5-10.3) mg/dL Phosphorus 3.4 (2.5-4.6) mg/dL Total Bilirubin 1.3 H (0.2-1.0) mg/dL AST 41 (10-42) IU/L ALT 23 (10-60) IU/L Alkaline Phosphatase 115 (42-121) IU/L Total Protein 6.5 L (6.7-8.2) g/dL Albumin 3.2 (3.2-5.5) g/dL Globulin 3.3 (2.1-4.2) g/dL Albumin/Globulin Ratio 1.0 (1.0-2.2) Lipase 28 (22-51) U/L - Diagnostic Imaging Diagnostic Imaging Results: positive: Final report reviewed (CT pelvis, Xray of right hip, Left knee xray) ABX Reporting Has patient been on IV antibiotics over the past 48 hours?: No Assessment/Plan - Problem List (1) Closed fracture of single pubic ramus of pelvis Impression: Continue with supportive care, non-surgical, would require daniel lift if able to go back to [facility]. PT recs are for [facility] to resume over there as she can stand at bedside and able to ambulate. Qualifiers: Encounter type: initial encounter Laterality: right Qualified Code(s): S32.591A - Other specified fracture of right pubis, initial encounter for closed fracture (2) Sacral fracture Impression: Continue with supportive care, non-surgical, would require daniel lift if able to go back to [facility]. PT recs for [facility] to cont at [facility]. Qualifiers: Encounter type: initial encounter Fracture type: closed Fracture morphology: unspecified fracture morphology Qualified Code(s): S32.10XA - Unspecified fracture of sacrum, initial encounter for closed fracture (3) Spinal stenosis, lumbar Impression: Pain control prn. No S/S of cauda-equina or cord compression. Supportive care to continue. Qualifiers: Neurogenic claudication status: unspecified Qualified Code(s): M48.061 - Spinal stenosis, lumbar region without neurogenic claudication (4) Osteoarthritis of right hip Impression: Hx rheumotoid arthritis remains on plaquenil to continue her, check Vit D. level and correct accordingly. Coexisting osteopenia, would be prudent to also start fosamax as well. Qualifiers: Osteoarthritis type: other secondary Qualified Code(s): M16.7 - Other unilateral secondary osteoarthritis of hip (5) Alzheimer's dementia Impression: Currently she requires 2pt soft restraints and IV haldol which should be used infrequently now that she is back on her daily Ativan and seroquel doses. Continue with Namenda. Will also require outpatient palliative care eval for advance care planning, QOL and to address her trajectory of illness of her alzheimers dementia. [place] to return back there with [facility]. Qualifiers: Alzheimer's disease onset: unspecified onset Dementia behavioral disturbance: without behavioral disturbance Qualified Code(s): G30.9 - Alzheimer's disease, unspecified; F02.80 - Dementia in other diseases classified elsewhere without behavioral disturbance (6) Intractable pain Impression: Currently not receiving ATC pain meds. Since patient does not have Unstable fractures she should perform ROM with PT/OT for dipo back to [facility]. (7) History of recent fall Impression: Continue with fall precautions. PT/OT to asses prior baseline. (8) Anemia Impression: Patient confirmed on iron panel with [facility]. Vit b12/FA are normal. Will start IV venofer 100 mg IV x 3d. Then switch to PO. Qualifiers: Anemia type: iron deficiency Iron deficiency anemia type: inadequate dietary iron intake Qualified Code(s): D50.8 - Other iron deficiency anemias (9) Osteopenia Impression: Obtain vit D level as well as start fosamax. High risk of fracutres with hx of falls. Qualifiers: Osteopenia location: hip Laterality: bilateral Qualified Code(s): M85.851 - Other specified disorders of bone density and structure, right thigh; M85.852 - Other specified disorders of bone density and structure, left thigh (10) Rheumatoid arthritis Impression: Restart Plaquenil. Qualifiers: Rheumatoid arthritis location: hip Rheumatoid factor presence: unspecified presence Laterality: bilateral Qualified Code(s): M06.9 - Rheumatoid arthritis, unspecified
[2018-07-26] MEDS: HYDROcod/ACETAM 5/325 MG TABLET PO PRN ×2 (06:39→13:52)
[2018-07-26 07:40] LABS: % IRON SATURATION 9 % (20-50); FOLATE 17.59 ng/mL (5.90 - >24.8); IRON 20 ug/dL (28-170); TOTAL IRON BINDING CAPACITY 214 ug/dL (250-450); TRANSFERRIN 153 mg/dL (192-382)
[2018-07-26] MEDS: KETOROLAC 30 MG/ML VIAL IVP PRN (08:04)
[2018-07-26] MEDS: QUEtiapine 25 MG TABLET PO SCH ×2 (08:26→12:44)
[2018-07-26] MEDS: MEMANTINE 5 MG TABLET PO SCH (08:26)
[2018-07-26] MEDS ORDERED: HYDROXYCHLOROQUINE 200 MG TABLET PO SCH (09:00)
[2018-07-26] MEDS ORDERED: ENOXAPARIN 40 MG/0.4 ML SYRINGE SUBQ SCH (09:00)
[2018-07-26] MEDS ORDERED: FAMOTIDINE 20 MG TABLET PO SCH (09:00)
[2018-07-26] MEDS ORDERED: MULTIVITAMIN TABLET PO SCH (09:00)
[2018-07-26] MEDS ORDERED: hydroCHLOROthiazide 25 MG TABLET PO SCH (09:00)
[2018-07-26] MEDS ORDERED: POLYETHYLENE GLYCOL 3350 17 GM PACKET PO SCH (09:00)
[2018-07-26 10:34] LABS: HGB - HEMOGLOBIN 10.5 g/dL (12.0-16.0); MEAN CORPUSCULAR HEMOGLOBIN 29.5 pg (27.0-31.0); MEAN CORPUSCULAR VOLUME 86.6 fL (81.0-99.0); MEAN PLATELET VOLUME 10.3 fL (7.9-10.8); RED BLOOD COUNT 3.56 10^6/uL (4.20-5.40); RED CELL DISTRIBUTION WIDTH 12.9 % (12.0-15.0); WHITE BLOOD COUNT 5.5 x10^3/uL (4.8-10.8)
[2018-07-26] MEDS ORDERED: ALENDRONATE 70 MG TABLET PO SCH (11:00)
--- NOTE | 2018-07-26 11:26 | Discharge Plan ---
"Discharge Plan for SNF / [facility] - Discharge Plan And Transition Orders Disposition: 03 SNF DC/Xfer Condition: Stable Allergies and Adverse Reactions: Allergies Allergy/AdvReac Type Severity Reaction Status Date / Time No Known Drug Allergies Allergy Verified 07/23/18 10:54 - SNF / [facility] Transition Orders Admit to (Facility): [facility] Under the care of (Name): Jami Hardy Discharge Diagnosis: (1) Closed fracture of single pubic ramus of pelvis; stable>non-surgical (2) Sacral fracture; stable>non-surgical (3) Spinal stenosis, lumbar; stable (4) Gait abnormality, Improved (5) Osteoarthritis of right hip; stable (6) Alzheimer's dementia with behavioral d/o; improved (7) Fall from slip, trip, or stumble. Stable (8) Intractable pain; resolving (10) Anemia; iron def (11) Osteopenia; stable 12). 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 Medicare Certification Statement: I certify that [facility] Hospital assisted care is medically necessary on a continuing basis for any of the conditions for which she/he is receiving care during hospitalization. Notify PCP of admission and forward orders to primary provider for signature. Weight on admission and: Daily Other Notification Orders: Call PCP immediately if patient develops dyspnea, chest pain/tightness or edema. House Bowel Program: Yes Additional Bowel Program Orders: If no BM after 2 days, nurse may give M.O.M. 30ml PO PRN and/or ducolax Supp 1 OK and/or MIRNA 250mg P.O., and/or senna 1-2 tabs PO. On day 3 nurse may give repeat above order until residents constipation is resolved. Annual Influenza Vaccine (between Jun 01 and December 29): Yes Two-step PPD per [facility] [phone] or approved exception documents: No Medication Orders: PLEASE REFER TO THE DISCHARGE MEDICATION LIST. Insulin Orders?: No - Medications New Prescriptions: Cholecalciferol (Vitamin D3) [Vitamin D3] 1,000 unit PO DAILYWM #30 capsule Ferrous Sulfate 325 mg PO TID #90 tablet - Diet Texture: [facility] soft - Therapies | Activity Therapy: Evaluation | Treat if indicated: PT Rehabilitation Potential: Maximize functional status Activity: Activity as Tolerated Weight Bearing: Full Weight Follow Up: PCP to follow up in 2-3 weeks"
--- NOTE | 2018-07-26 11:35 | DISCHARGE SUMMARY ---
"Discharge Summary Admit Date: 07/25/18 Discharge Date: 07/26/18 Discharging Provider: Dr. Murray Primary Care Provider: Jaim Hardy DO Code Status: Do Not Attempt Resuscitation Condition at Discharge: Stable Discharge Disposition: 03 SNF DC/Xfer Discharge Facility Name: [facility] - DIAGNOSES Admission Diagnoses: (1) Closed fracture of single pubic ramus of pelvis Conclusion/Plan: Likely due to a mechanical fall as patient had slipped at [facility] trying to ambulate although unclear of ambulation status prior to fall prior to ED visit. Imaging studies reviewed and would treat conservatively with pain meds, PT/OT. Obtain a disposition in terms of rehab potential as [facility] has a daniel lift and would continue mobility or rehab plan if PT/OT recommends one. Qualifiers: Encounter type: initial encounter Laterality: right Qualified Code(s): S32.591A - Other specified fracture of right pubis, initial encounter for closed fracture (2) Sacral fracture Conclusion/Plan: Undetermined age but likely happened approximately 4-5 days ago when patient had initially fallen at [facility]. Imaging studies reviewed and would treat conservatively with pain meds, PT/OT. Obtain a disposition in terms of rehab potential as [facility] has a daniel lift and would continue mobility or rehab plan if PT/OT recommends one. Qualifiers: Encounter type: initial encounter Fracture type: closed Fracture morphology: unspecified fracture morphology Qualified Code(s): S32.10XA - Unspecified fracture of sacrum, initial encounter for closed fracture (3) Spinal stenosis, lumbar Conclusion/Plan: Likely contributing to poor posturing and gait issues with mobility to stabilize core. Would have PT/OT to asses. Qualifiers: Neurogenic claudication status: unspecified Qualified Code(s): M48.061 - Spinal stenosis, lumbar region without neurogenic claudication (4) Gait abnormality Conclusion/Plan: Rehab potential per PT/OT. (5) Osteoarthritis of right hip Conclusion/Plan: Would obtain Vit D level to see if patient has def. levels. Qualifiers: Osteoarthritis type: other secondary Qualified Code(s): M16.7 - Other unilateral secondary osteoarthritis of hip (6) Alzheimer's dementia Conclusion/Plan: Would start namenda or aricept, improve cognition and minimize behavioral d/o, avoid sedatives and narcotics only to be given as prn for pain. Qualifiers: Alzheimer's disease onset: unspecified onset Dementia behavioral d isturbance: without behavioral disturbance Qualified Code(s): G30.9 - Alzheimer's disease, unspecified; F02.80 - Dementia in other diseases classified elsewhere without behavioral disturbance (7) Fall from slip, trip, or stumble Conclusion/Plan: Hx of multiple falls with high risk of falls in future. Would monitor and assess mobility status, strength and balance. Qualifiers: Encounter type: subsequent encounter Qualified Code(s): W01.0XXD - Fall on same level from slipping, tripping and stumbling without subsequent striking against object, subsequent encounter (8) Intractable pain Conclusion/Plan: Place on IV toradol with flexeril/norco combo prn. Right pelvic pain. (10) Anemia Conclusion/Plan: Normocytic with hx internal hemorrhoids per hx. Would monitor trends. No mention of melena or BRBPR. Qualifiers: Anemia type: unspecified type Qualified Code(s): D64.9 - Anemia, unspecified (11) Osteopenia Conclusion/Plan: Obtain vitamin D level. Treat if deficient or insufficient Qualifiers: Osteopenia location: hip Laterality: bilateral Qualified Code(s): M85.851 - Other specified disorders of bone density and structure, right thigh; M85.852 - Other specified disorders of bone density and structure, left thigh Discharge Diagnoses with Status of Each Condition: (1) Closed fracture of single pubic ramus of pelvis; stable>non-surgical (2) Sacral fracture; stable>non-surgical (3) Spinal stenosis, lumbar; stable (4) Gait abnormality, Improved (5) Osteoarthritis of right hip; stable (6) Alzheimer's dementia with behavioral d/o; improved (7) Fall from slip, trip, or stumble. Stable (8) Intractable pain; resolving (10) Anemia; iron def (11) Osteopenia; stable 12). 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 - HPI History of Present Illness: This is a 77 y/o pleasantly demented female with hx multiple falls, alzheimer's dementia, HTN, HLP, osteopenia, OA of hip, L-spine stenosis with degenerative disk diseae p/w ER having been seen for a fall 2 days prior from [facility] with recurrent fall and associated hip pain with gait disturbance. Patient's was at bedside to convey most of information as patient has moderate dementia and is a poor historian. Patient had imaging studies 2 days prior which showed L-knee xray neg for acute fx's, however L- spine and pelvis CT showed an S-4 segment comminuted and displaced sacral fx with angulation (age undetermined). L-spine at the time revealed degenerative disc disease at L-5 to S-1 with moderate stenosis to right L3/L4 and left L4/L5, anterolisthiesis L4/L5 and L5 on S1, along with facet arthropathy BL L5/S1, ostepenia, moderate right hip OA. Today patient had another fall for which Xrays revealed R-sacral fx present likely from prior fall, and NEW pelvic fractures to right superior and inferior pubic rami with displacement. Labs from 07/23 were essential unremarkable, CBC today shows a downtrending in Hgb to 11.0 from a 12.5. Patient or son denies melena, fevers, joint pain, dysuria, chest pain, nausea, emesis, or rashes. Patient was able to extend her left leg and did not grimace in pain on manipulation her pelvis bilaterally. - CONSULTS | PROCEDURES Consultations: PT Procedures: none - HOSPITAL COURSE Hospital Course: Patient was managed medically with pain control on flexeril prn, IV toradol as well as ativan, seroquel and her home meds dispensed. Alzheimers dementia with behavioral d/o was managed with 2 pt soft restraints along with IV haldol which was not needed once patient was able to freely move on her own and ambulate with assistance. Patient was clinically dehydrated and was found cachectic and with BMI 18.5, chronically mild protein and calories def malnutrition. Patient had non-surgical pelvic/sacral fractures which PT was amble to assess for outpatient disposition and recommended weight bearing with assistance and continued mobility to improve strength, gait, balance and ROM to prevent further falls and fractures. Osteopenia with her pre-existing rheumotoid arthritis to be addressed with continued use of her home plaquenil and the addition of calcium, vit D and fosamax to her regimen. Iron def anemia was seen and will receive IV venofer 200 mg iv x1 and then PO ferrous sulfate. Ensure cans per dietitian recommended with meals to optimize nutritional status. - ALLERGIES Allergies/Adverse Reactions: Allergies Allergy/AdvReac Type Severity Reaction Status Date / Time No Known Drug Allergies Allergy Verified 07/23/18 10:54 - MEDICATIONS Home Medications: Ambulatory Orders Medication Instructions Recorded Confirmed Acetaminophen 650 mg PO Q6H PRN 07/25/18 07/25/18 Hydroxychloroquine Sulfate 200 mg PO BID 07/25/18 07/25/18 LORazepam [Lorazepam] 0.5 mg PO 1200 07/25/18 07/25/18 LORazepam [Lorazepam] 0.5 mg PO Q6H PRN 07/25/18 07/25/18 Loperamide HCl [Loperamide] 2 - 4 mg PO PRN PRN MDD 16 MG 07/25/18 07/25/18 Multivitamin [Theragran] 1 tab PO DAILY 07/25/18 07/25/18 QUEtiapine [SEROquel] 25 mg PO 0600,1200 07/25/18 07/25/18 Sennosides [Senna] 8.6 - 17.2 mg PO DAILY PRN 07/25/18 07/25/18 Simvastatin 10 mg PO QPM 07/25/18 07/25/18 Alendronate [Fosamax] 70 mg PO Q7D tablet 07/26/18 Calcium Carbonate [Tums (Calcium 500 mg PO BID tablet 07/26/18 Carbonate 500mg)] Cholecalciferol (Vitamin D3) 1,000 unit PO DAILYWM #30 capsule 07/26/18 [Vitamin D3] Cyclobenzaprine [Flexeril] 5 mg PO TID PRN tablet 07/26/18 Ferrous Sulfate 325 mg PO TID #90 tablet 07/26/18 HYDROcod/ACETAM 5/325 [[place] 5/325] 1 tab PO Q4HR PRN tablet 07/26/18 Latanoprost 0.005% Ophth Drops 1 drops EACHEYE QPM bottle 07/26/18 [Xalatan Ophth Drops] Memantine [Namenda] 5 mg PO BID tablet 07/26/18 Polyethylene Glycol 3350 [Miralax] 17 gm PO DAILY packet 07/26/18 - PHYSICAL EXAM AT DISCHARGE General Appearance: positive: Other (pleasantly demented) Eyes Bilateral: positive: Normal inspection ENT: positive: ENT inspection nml Neck: positive: Nml inspection, Thyroid nml, No JVD, Trachea midline Respiratory: positive: Chest non-tender, No respiratory distress, Breath sounds nml Cardiovascular: positive: Regular rate & rhythm, No murmur, No gallop Peripheral Pulses: positive: 2+ Abdomen: positive: Non-tender, No organomegaly, Nml bowel sounds, No distention. negative: Tenderness Skin: positive: Color nml, No rash, Warm Extremities: positive: Non-tender, Other (right hip with some tenderness on manipulation and ROM) Neurologic/Psychiatric: positive: Disoriented to person, Disoriented to place, Other (baseline dementia) - LABS Result Diagrams: 07/26/18 06:32 07/26/18 06:32 - FOLLOW UP Follow Up: F/u PCP in 2-3 weeks - TIME SPENT Time Spent in Discharge (Minutes): 35"
[2018-07-26] MEDS ORDERED: IRON SUCROSE 200 MG in SODIUM CHLORIDE 0.9% 100ML 100 ML IV ONE (12:00)
[2018-07-26] MEDS ORDERED: LORazepam 0.5 MG TABLET PO SCH (12:00)
[2018-07-26 12:22] LABS: ALBUMIN 3.2 g/dL (3.2-5.5); CALCIUM 8.8 mg/dL (8.5-10.3); CREATININE 0.8 mg/dL (0.4-1.0); PHOSPHORUS 3.8 mg/dL (2.5-4.6)
[2018-07-26] MEDS ORDERED: BISACODYL 10 MG SUPP PR ONE (13:10)
[2018-07-26 15:33] VITALS: BP 158/89
[2018-07-26] MEDS ORDERED: CALCIUM CARBONATE CHEW 500 MG TABLET PO SCH (21:00)
[2018-07-26] MEDS ORDERED: ATORVASTATIN 10 MG TABLET PO SCH (21:00)
[2018-07-26] MEDS ORDERED: SIMVASTATIN 10 MG PO SCH (21:00)
[2018-07-27] MEDS ORDERED: MULTIVITAMIN W/MINERALS TABLET PO SCH (08:00)
[2018-07-27] MEDS ORDERED: CHOLECALCIFEROL 1,000 UNIT TABLET PO SCH (09:00)
== END 2018-07-26 15:35 ==
LOC: EDUNIT# → ED 15:29 → MS2 17:54
PROVIDERS: ADMIT Family Medicine; ATTEND Family Medicine
DX: S32.591A Other specified fracture of right pubis, initial encounter for closed fracture (principal); S32.10XA Unspecified fracture of sacrum, initial encounter for closed fracture; W01.0XXA Fall on same level from slipping, tripping and stumbling without subsequent striking against object, initial encounter; Y92.129 Unspecified place in nursing home as the place of occurrence of the external cause; Z91.81 History of falling; M51.37 Other intervertebral disc degeneration, lumbosacral region; M47.9 Spondylosis, unspecified; M48.061 Spinal stenosis, lumbar region without neurogenic claudication; M16.11 Unilateral primary osteoarthritis, right hip; G30.9 Alzheimer's disease, unspecified; F02.81 Dementia in other diseases classified elsewhere, unspecified severity, with behavioral disturbance; R26.9 Unspecified abnormalities of gait and mobility; M85.852 Other specified disorders of bone density and structure, left thigh; M85.851 Other specified disorders of bone density and structure, right thigh; D50.9 Iron deficiency anemia, unspecified; E44.1 Mild protein-calorie malnutrition; N28.9 Disorder of kidney and ureter, unspecified; E86.0 Dehydration; Z78.1 Physical restraint status; Z68.1 Body mass index [BMI] 19.9 or less, adult; M06.9 Rheumatoid arthritis, unspecified; G89.21 Chronic pain due to trauma; S80.02XA Contusion of left knee, initial encounter; S80.01XA Contusion of right knee, initial encounter
CPT/HCPCS: 36415; 51701; 73502; 80053; 80069; 82306; 82607; 82652; 82746; 83540; 83690; 84100; 84466; 85025; 85027; 96361; 96365; 96372; 96375; 96376; 97163; 97165; 99284; A9270; G0378; G8978; G8979; G8980; G8987; G8988; G8989; J1650; J1756; J7120; 82274; 99283

== ENCOUNTER 2018-07-26 15:52 | Outpatient (CLI) | payer MEDICARE | END 2018-07-26 15:53 | disposition home or self-care (01) | LOC: EMS 15:52 | PROVIDERS: ATTEND Surgery | DX: S32.9XXA Fracture of unspecified parts of lumbosacral spine and pelvis, initial encounter for closed fracture (principal); F03.91 Unspecified dementia, unspecified severity, with behavioral disturbance; W19.XXXA Unspecified fall, initial encounter | CPT/HCPCS: A0425; A0428 ==

== ENCOUNTER 2018-08-29 20:55 | Outpatient (CLI) | payer MEDICARE | END 2018-08-29 23:59 | disposition E | LOC: EMS 20:55 | PROVIDERS: ATTEND Surgery ==